=== PATIENT | male | born 1975 | race African-American/Black ===

== ENCOUNTER 2017-04-09 12:03 | Emergency (ER) | payer SELFPAY | END 2017-04-09 12:52 | disposition home or self-care (01) | LOC: ERS 12:03 | DX: J06.9 Acute upper respiratory infection, unspecified (principal); J45.909 Unspecified asthma, uncomplicated; F17.210 Nicotine dependence, cigarettes, uncomplicated | CPT/HCPCS: 99283 ==

== ENCOUNTER 2017-08-13 11:57 | Emergency (ER) | payer SELFPAY | END 2017-08-13 12:22 | disposition home or self-care (01) | LOC: ERS 11:57 | DX: R51 Headache (principal); J45.909 Unspecified asthma, uncomplicated; Z87.891 Personal history of nicotine dependence | CPT/HCPCS: 99281 ==

== ENCOUNTER 2017-10-22 12:07 | Emergency (ER) | payer SELFPAY ==
--- NOTE | 2017-10-22 13:27 | RAD ---
FOUR VIEWS LEFT KNEE: HISTORY: Left knee pain that began yesterday. COMPARISON: None. FINDINGS: Four views of the left knee show no evidence of acute fracture or dislocation. No degenerative mcgarry es are seen. No knee effusion is present. IMPRESSION: Unremarkable exam. POS: [facility]
--- NOTE | 2017-10-22 13:33 | RAD ---
RIGHT SHOULDER THREE VIEWS: HISTORY: Shoulder pain x2 months. FINDINGS: There are no signs of fracture or dislocation. No acute bony findings. There is suggestion of some slight subacromial spur formation. If internal derangement is clinically suspected, MRI is suggested . POS: C
[2017-10-22] MEDS ORDERED: Ketorolac Tromethamine 60 MG/2 ML VIAL ONE (15:31)
== END 2017-10-22 15:27 | disposition home or self-care (01) ==
LOC: ERS 12:07
DX: M25.562 Pain in left knee (principal); M25.512 Pain in left shoulder; J45.909 Unspecified asthma, uncomplicated; Z87.891 Personal history of nicotine dependence
CPT/HCPCS: 96372; J1885

== ENCOUNTER 2022-02-08 13:12 | Outpatient (CLI) | payer OTHER ==
[2022-02-08 15:14] LABS: Hemoglobin 14.2 g/dL (13.5-17.5); Mean Corpuscular HGB CONC 34.5 g/dL (32.0-36.0); Mean Corpuscular Hemoglobin 32.6 pg (27.0-33.0); Mean Corpuscular Volume 94.3 fl (81.2-95.1); Mean Platelet Volume 10.2 fl (7.4-10.4); Platelet Count 303 10x3/uL (150-450); RBC Distribution Width 14.1 % (11.5-14.5); Red Blood Cell (RBC) Count 4.36 10x6/uL (4.32-5.72); White Blood Cell (WBC) Count 10.5 10x3/uL (3.5-10.5)
[2022-02-08 15:24] LABS: Prothrombin Time 10.9 sec (9.5-12.1)
[2022-02-08 15:39] LABS: Anion Gap 18 mmol/L (10-20); BUN (Urea Nitrogen) 10 mg/dL (8.9-20.6); Calc. Creatinine Clearance 0 mL/min (70-130); Calcium 9.4 mg/dL (7.8-10.44); Carbon Dioxide 25 mmol/L (22-29); Chloride 100 mmol/L (98-107); Estimated GFR 80; Glucose 98 mg/dL (70-105); Potassium 4.2 mmol/L (3.5-5.1); Sodium 139 mmol/L (136-145)
== END 2022-02-08 13:13 | disposition home or self-care (01) ==
LOC: LABBT 13:12
PROVIDERS: ATTEND Internal Medicine Cardiovascular Disease
DX: Z01.812 Encounter for preprocedural laboratory examination (principal); I48.0 Paroxysmal atrial fibrillation; I34.0 Nonrheumatic mitral (valve) insufficiency
CPT/HCPCS: 80048; 85027; 85610

== ENCOUNTER → 2022-02-13 | Day surgery (SDC) | payer OTHER ==
[2022-02-09 14:01] VITALS: BMI 32.3
[~2022-02-13] MED LIST: Lidocaine 1% PF 5 ML VIAL ONE; Lidocaine 1% w/Epinephrine 1:100K 20 ML VIAL ONE; PROPOFOL 200 MG/20 ML VIAL ONE
== END | disposition home or self-care (01) ==
LOC: SDC 05:59
PROVIDERS: ATTEND Internal Medicine Cardiovascular Disease
PROC: B246ZZ4 Ultrasonography of Right and Left Heart, Transesophageal (ICD-10-PCS; principal; 2022-02-13)
DX: I48.0 Paroxysmal atrial fibrillation (principal); I11.0 Hypertensive heart disease with heart failure; I50.22 Chronic systolic (congestive) heart failure; E78.5 Hyperlipidemia, unspecified; F17.200 Nicotine dependence, unspecified, uncomplicated; F10.10 Alcohol abuse, uncomplicated; Z86.16 Personal history of COVID-19; Z79.01 Long term (current) use of anticoagulants; Z79.899 Other long term (current) drug therapy; Z95.2 Presence of prosthetic heart valve
CPT/HCPCS: 93312; J2704